=== PATIENT | male | born 1970 | race Caucasian/White ===

== ENCOUNTER → 2020-09-13 | Outpatient (CLI) | payer BC ==
--- NOTE | 2020-09-14 03:22 | MR ---
EXAMINATION TYPE: MR pelvis wo/w con DATE OF EXAM: 09/13/2020 COMPARISON: None HISTORY: Rectal Protocol, Abnormal colonoscopy-tumor removed CONTRAST: Standard multiplanar, multisequence MRI departmental protocol utilizing 10 mL intravenous Gadavist ga dolinium contrast. Urinary bladder is intact. Prostate gland appears intact. There is no free fluid in the pelvis. There is no evidence of inguinal hernia. I see no pelvic lymphadenopathy. There is irregular lumen of the lower rectosigmoid colon. There is some irregular 2 x 1 cm area of en hancement on the left lateral wall that could relate to tumor. Prostate gland appears intact. The remainder of exam is unremarkable. IMPRESSION: Irregular wall thickening on the left lateral wall of the lower rectosigmoid colon suggestive of tumo r. No pelvic lymphadenopathy identified.
== END ==
LOC: RADMRIMAIN 07:59
PROVIDERS: ATTEND Student in an Organized Health Care Education/Training Program
DX: D49.0 Neoplasm of unspecified behavior of digestive system (principal)
CPT/HCPCS: 72197; A9585

== ENCOUNTER → 2023-06-25 | Outpatient (CLI) | payer OTHER ==
[2023-06-25 20:46] LABS: Chol/HDL Ratio 3.96 Ratio; LDL Cholesterol,Calculated 123.7 mg/dL (0.0-131.0)
[2023-06-25 20:48] LABS: ALT 56 U/L (10-49); AST 46 U/L (14-35); Albumin 4.8 g/dL (3.8-4.9); Albumin/Globulin Ratio 1.92 Ratio (1.60-3.17); Alkaline Phosphatase 49 U/L (41-126); Bilirubin, Conjugated <0.20 mg/dL (0.20-0.40); Bilirubin,Unconjugated >0.50 mg/dL (0.20-1.00); Globulin 2.5 g/dL (1.6-3.3); Testosterone >1400.00 ng/dL (86.98-780.10); Total Bilirubin 0.7 mg/dL (0.3-1.2); Total Protein 7.3 g/dL (6.2-8.2)
== END | disposition home or self-care (01) ==
LOC: LABWHC1 14:20
PROVIDERS: ATTEND Family Medicine
DX: N52.9 Male erectile dysfunction, unspecified (principal); E78.89 Other lipoprotein metabolism disorders; R74.01 Elevation of levels of liver transaminase levels
CPT/HCPCS: 36415; 80061; 80076; 84270; 84402; 84403